=== PATIENT | male | born 1975 | race Two or more races ===

== ENCOUNTER 2016-04-15 21:18 | Observation (INO) | payer BC, OTHER ==
[~2016-04-15] VITALS: Ht 172.7 cm; Wt 121.6 kg
[2016-04-16] MEDS ORDERED: MECLIZINE HCL 25 MG TAB PO ONE
[2016-04-16 00:06] LABS: Basophils # (auto) 0.1 uL; Eosinophils # (auto) 0.1 uL; Eosinophils % (auto) 0.7 % (0.0-7.0); Hematocrit 48.5 % (41.0-53.0); Lymphocytes # (auto) 1.5 uL; Lymphocytes % (auto) 13.9 % (10.0-50.0); Mean Corpuscular Hemoglobin 27.5 pg (28.0-32.0); Mean Corpuscular Volume 83.3 fL (80.0-100.0); Mean Platelet Volume 10.2 fL (7.4-10.4); Monocytes # (auto) 0.7 uL; Monocytes % (auto) 6.3 % (0.0-12.0); Neutrophils # (auto) 8.4 uL; Neutrophils % (auto) 78.1 % (37.0-80.0); Platelet Count (auto) 246 10^3/uL (140-450); Red Cell Distribution Width 12.3 % (11.6-16.0); White Blood Cell 10.8 10^3/uL (4.4-10.8)
[2016-04-16 00:10] LABS: Albumin 3.9 g/dL (3.4-5.0); Calcium 8.6 mg/dL (8.5-10.1); Potassium 3.7 mmol/L (3.5-5.1)
[2016-04-16 00:15] LABS: Bilirubin, Total 0.3 mg/dL (0.2-1.0); Total Protein 7.4 g/dL (6.4-8.2)
[2016-04-16 02:53] LABS: Urine Bilirubin Negative (Negative); Urine Blood Negative /uL (Negative); Urine Color Yellow (Yellow); Urine Glucose Normal (Normal); Urine Ketone Negative (Negative); Urine Mucus FEW (None Seen); Urine Nitrite Negative (Negative); Urine RBC <1 /hpf (0 - 3); Urine Urobilinogen Normal (Negative)
[2016-04-16] MEDS ORDERED: IBUPROFEN 600 MG TAB PO ONE (03:30)
[2016-04-16 04:40] VITALS: BP 132/82
== END 2016-04-16 04:14 | disposition home or self-care (01) | DRG 149 ==
LOC: ER 21:25 → TELE 23:05 → ER 04-16 04:14
PROVIDERS: ADMIT Emergency Medicine; ATTEND Emergency Medicine
DX: R42 Dizziness and giddiness (principal); I10 Essential (primary) hypertension; G44.209 Tension-type headache, unspecified, not intractable
CPT/HCPCS: 36415; 70450; 80053; 81001; 84484; 85025; 99285; G0378; G0434; J8597

== ENCOUNTER 2017-02-10 08:34 | Emergency (ER) | payer BC, OTHER ==
[~2017-02-10] VITALS: Ht 172.7 cm; Wt 121.6 kg
[2017-02-10 09:28] LABS: Basophils # (auto) 0.1 uL; Basophils % (auto) 0.8 % (0.0-2.0); Eosinophils # (auto) 0.1 uL; Hematocrit 48.9 % (41.0-53.0); Hemoglobin 16.6 g/dL (13.5-17.5); Lymphocytes # (auto) 1.9 uL; Lymphocytes % (auto) 25.2 % (10.0-50.0); Mean Corpuscular Hemoglobin 28.9 pg (28.0-32.0); Mean Corpuscular Volume 85.1 fL (80.0-100.0); Monocytes # (auto) 0.5 uL; Monocytes % (auto) 7.1 % (0.0-12.0); Neutrophils # (auto) 4.9 uL; Neutrophils % (auto) 64.9 % (37.0-80.0); Nucleated Red Blood Cells % 0.2 %; Platelet Count (auto) 216 10^3/uL (140-450); Red Blood Cells 5.74 10^6/uL (4.5-5.90); Red Cell Distribution Width 13.2 % (11.8-14.3); White Blood Cell 7.6 10^3/uL (4.4-10.8)
[2017-02-10 09:50] LABS: Albumin 4.2 g/dL (3.4-5.0); BUN/Creatinine Ratio 17.1; Bilirubin, Total 0.4 mg/dL (0.2-1.0); Calcium 8.8 mg/dL (8.5-10.1); Potassium 3.8 mmol/L (3.5-5.1); Total Protein 7.7 g/dL (6.4-8.2)
[2017-02-10 10:55] VITALS: BP 153/107
== END 2017-02-10 11:06 | disposition home or self-care (01) ==
LOC: ER 08:34
DX: G51.0 Bell's palsy (principal); I10 Essential (primary) hypertension
CPT/HCPCS: 36415; 70450; 80053; 84484; 85025; 93005

== ENCOUNTER 2024-04-25 15:01 | Emergency (ER) | payer BC, OTHER ==
[~2024-04-25] VITALS: Ht 172.7 cm; Wt 135.6 kg
[2024-04-25 16:17] VITALS: BP 131/103; PULSE 117; RESP 16; TEMP 99.2; O2SAT 95
--- NOTE | 2024-04-25 16:56 | DVH ---
CLINICAL INDICATION: pain TECHNIQUE: 3 radiographic views of the left shoulder were obtained. Comparison: None FINDINGS/IMPRESSION: There is no evidence of acute fracture or dislocation. The visualized joint space is well maintained. The alignment is anatomical. There is no radiopaque foreign body.
--- NOTE | 2024-04-25 17:00 | DVH ---
Left lower extremity venous Doppler INDICATION: calf pain TECHNIQUE: Duplex venous sonography was performed with real-time and flow sensitive images submitted for evaluation. FINDINGS: Normal phasic venous flow. Veins are fully compressible. No filling defects. IMPRESSION: 1. No evidence of deep vein thrombosis.
[2024-04-25] MEDS ORDERED: NAPR-746 PO (17:17)
[2024-04-25] MEDS ORDERED: METH-1181 PO (17:17)
--- NOTE | 2024-04-25 17:17 | ED.PDOC ---
Musculoskeletal HPI Comments 49 year old male who recent arrived from [facility] presents for concern of DVT Denies CP/SOB but c/o L shoulder pain and L calf pain Rated as moderate OTC Tylenol helps Chief Complaint: Upper Extremity Time Seen by MD: 15:41 Primary Care Provider: CARISSA Heard Notes: Nurses Notes Allergies: Coded Allergies: NO KNOWN ALLERGIES (Unverified , 04/16/16) Home Meds Active Scripts Naproxen (Naproxen) 500 Mg Tab, 500 MG PO BIDPC for 10 Days, #20 TAB 0 Refills Prov:ANKIT MARTINEZ SECURITY CONSULTANT 04/25/24 Methocarbamol (Methocarbamol) 500 Mg Tab, 500 MG PO Q8HP PRN for 10 Days, #30 TAB 0 Refills Prov:ANKIT MARTINEZ SECURITY CONSULTANT 04/25/24 Information Source: Patient Mode of Arrival: Ambulatory Past Medical History PAST MEDICAL HISTORY: HTN Surgical History: Denies all surgeries Family History Family History: Unobtainable Social History Smoker: Non-Smoker Alcohol: Denies ETOH Use Drugs: Denies Drug Use Lives In: Home All Other Systems: Reviewed and Negative (Per HPI) Physical Exam General Appearance: No Apparent Distress, Normal HEENT: Normal ENT Inspection, Pharynx Normal, TMs Normal Neck: Full Range of Motion, Non-Tender, Normal, Normal Inspection Respiratory: Chest Non-Tender, Lungs Clear, No Accessory Muscle Use, No Respi ratory Distress, Normal Breath Sounds Cardiovascular: No Edema, No JVD, No Murmur, No Gallop, Normal Peripheral Pulses, Regular Rate/Rhythm Breast Exam: Deferred Gastrointestinal: No Organomegaly, Non Tender, No Pulsatile Mass, Normal Bowel Sounds, Soft Genitalia: Deferred Pelvic: Deferred Rectal: Deferred Extremities: No calf tenderness, Normal capillary refill, Normal inspection, Normal range of motion, Non-tender, No pedal edema Musculoskeletal : Location: Left Extremity Location: Calf (normal on inspection) Apperance: Normal Neurologic: Alert, 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 Was a procedure done?: No Differential Diagnosis EXT Differential Diagnosis: Deep Vein Thrombosis, Other X-Ray, Labs, Meds, VS Vital Signs Date Time Temp Pulse Resp B/P (MAP) Pulse Ox O2 Delivery O2 Flow Rate FiO2 04/25/24 16:17 117 16 95 Room Air 04/25/24 16:17 99.2 117 16 131/103 (112) 95 99.2 04/25/24 15:55 99.2 117 16 131/103 (112) 95 99.2 X-Ray, Labs, Meds, VS Comment On reevaluation, patient had symptomatic improvement. Patient is stable for discharge at this time. External notes reviewed. Test results and diagnostic imaging interpreted. All diagnostic findings, discharge care, education and instructions provided Follow-up with PCP in 2 to 3 days Patient verbalized understanding and agreed to treatment plan Vital signs stable, afebrile, no acute distress noted Patient ambulatory with strong steady gait Advised to return precautions for any new or worsening symptoms, return to ER immediately for re-evaluation Patient is aware that the purpose of this visit was for an acute medical emergency requiring emergent stabilization. Chronic conditions, including malignancies have not been ruled out. Patient is instructed to follow up with PCP as directed and discharge instructions for continued care and workup. If unable to arrange follow-up, patient is to return to the emergency department for reassessment. Patient (parent or legal guardian if applicable) was given verbal and written discharge instructions and acknowledges understanding. Time of 1ST Reevaluation: 17:00 Reevaluation 1ST: Improved Patient Education/Counseling: Diagnosis, Treatment Family Education/Counseling: Diagnosis, Treatment Departure 1 Departure Time of Disposition: 17:16 Impression: Primary Impression: Left shoulder pain Qualified Codes: M25.512 - Pain in left shoulder Additional Impression: Pain of left calf Disposition: HOME / SELF CARE / HOMELESS Condition: Fair e-Prescriptions Naproxen (Naproxen) 500 Mg Tab 500 MG PO BIDPC for 10 Days, #20 TAB 0 Refills Prov: ANKIT MARTINEZ NP 04/25/24 Methocarbamol (Methocarbamol) 500 Mg Tab 500 MG PO Q8HP PRN for 10 Days, #30 TAB 0 Refills Prov: ANKIT MARTINEZ NP 04/25/24 Critical Care Note Critical Care Time?: No Stability Stability form required: No Heart Score Heart Score: Heart Score Response (Comments) Value History N/A 0 EKG N/A 0 Age N/A 0 Risk Factors N/A 0 Troponin N/A 0 Total 0 ANKIT MARTINEZ NP Apr 25, 2024 17:17
== END 2024-04-25 17:44 | disposition home or self-care (01) ==
LOC: ER 15:01
DX: M79.662 Pain in left lower leg (principal); M25.512 Pain in left shoulder; I10 Essential (primary) hypertension
CPT/HCPCS: 73030; 93971